=== PATIENT | female | born 1980 | race Asian ===

== ENCOUNTER 2017-06-20 02:19 | Inpatient (IN) | payer BC ==
[~2017-06-20] VITALS: Ht 152.4 cm; Wt 64.9 kg
[2017-06-20] MEDS ORDERED: LACTATED RINGERS 1,000 ML IV SCH (03:13)
[2017-06-20] MEDS ORDERED: CITRIC ACID/SODIUM CITRATE 30 ML UDC PO SCH (03:15)
[2017-06-20 03:30] VITALS: BP 105/64
[2017-06-20 03:50] LABS: BASOPHILS # (AUTO) 0.3 K/uL (0.00-0.22); BASOPHILS % (AUTO) 3.9 % (0.0-2.0); EOSINOPHILS # (AUTO) 0.1 K/uL (0-0.4); EOSINOPHILS % (AUTO) 0.6 % (0.0-4.0); HEMATOCRIT 42.1 % (36-48); HEMOGLOBIN 13.9 g/dL (12.0-16.0); LYMPHOCYTES # (AUTO) 2.4 K/uL (2.5-16.5); LYMPHOCYTES % (AUTO) 27.3 % (20.5-51.1); MEAN CORPUSCULAR HEMOGLOBIN 29 pg (27-31); MEAN CORPUSCULAR HGB CONC 33 g/dL (33-37); MEAN CORPUSCULAR VOLUME 89 fL (80-94); MONOCYTES # (AUTO) 0.6 K/uL (0.8-1.0); MONOCYTES % (AUTO) 7.2 % (1.7-9.3); NEUTROPHILS # (AUTO) 5.5 K/uL (1.8-7.7); PLATELET COUNT (AUTO) 246 K/uL (140-450); RED BLOOD CELL COUNT(AUTO) 4.74 MIL/uL (4.20-5.40); RED CELL DISTRIBUTION WIDTH 13.8 % (11.6-13.7); WHITE BLOOD COUNT (AUTO) 8.9 K/uL (4.8-10.8)
[2017-06-20 03:51] LABS: APPEARANCE,URINE CLEAR (CLEAR); BILIRUBIN,URINE NEGATIVE (NEGATIVE); BLOOD, URINE NEGATIVE (NEGATIVE); COLOR,URINE YELLOW (YELLOW); LEUKOCYTE ESTERASE ,URINE TRACE (NEGATIVE); NITRITE, URINE NEGATIVE (NEGATIVE); UGLUCOSE NEGATIVE (NEGATIVE)
[2017-06-20 04:16] LABS: ANION GAP 16.3 (8-16); CARBON DIOXIDE 22.6 mmol/L (21-32); CREATININE 0.8 mg/dL (0.6-1.3); POTASSIUM 3.9 mmol/L (3.5-5.1); TOTAL BILIRUBIN 0.3 mg/dL (0.0-1.0)
[2017-06-20 04:24] LABS: RBC,URINE 0-5 (RARE) /HPF (0-5); WBC,URINE 0-5 (RARE) /HPF (0-5)
[2017-06-20] MEDS ORDERED: PREN-380 PO (04:24)
[2017-06-20] MEDS ORDERED: [UNRECOGNIZED DRUG - OTHER] (04:24)
[2017-06-20] MEDS ORDERED: MORPHINE PRES FREE 10 MG/10 ML AMP IV ONE (06:52)
[2017-06-20] MEDS ORDERED: MIDAZOLAM 2 MG/2 ML VIAL ONE (06:52)
[2017-06-20] MEDS ORDERED: ceFAZolin 1,000 MG VIAL ONE (06:58)
[2017-06-20] MEDS ORDERED: SODIUM 10 ML VIAL ONE (06:58)
[2017-06-20] MEDS ORDERED: ONDANSETRON 4 MG/2 ML VIAL ONE (07:00)
[2017-06-20] MEDS ORDERED: BUPIVACAINE-MPF 0.75% 10 ML VIAL INJ ONE (07:00)
[2017-06-20] MEDS ORDERED: OXYTOCIN 10 UNITS/ML VIAL ONE (07:09)
[2017-06-20] MEDS ORDERED: TRIAMCINOLONE 40 MG/ML 5ML VIAL ONE (07:09)
[2017-06-20] MEDS ORDERED: OXYTOCIN 20 UNITS in LACTATED RINGERS 1,000 ML IV SCH ×2 (07:13→07:33)
[2017-06-20] MEDS ORDERED: MEASLES, MUMPS, AND RUBELLA 1 VIAL SQVAC PRN (07:15)
[2017-06-20] MEDS ORDERED: METHYLERGONOVINE 0.2 MG/ML AMP IM PRN (07:15)
[2017-06-20] MEDS ORDERED: HYDROcodone/APAP 5/325 MG 1 TAB TAB PO PRN (07:15)
[2017-06-20] MEDS ORDERED: oxyCODONE/APAP 5/325 MG 1 TAB TAB PO PRN (07:15)
[2017-06-20] MEDS ORDERED: SIMETHICONE 80 MG TAB.CHEW PO PRN (07:15)
[2017-06-20] MEDS ORDERED: TRIMETHOBENZAMIDE 200 MG/2 ML SYR IM PRN (07:15)
[2017-06-20] MEDS ORDERED: TEMAZEPAM 15 MG CAP PO PRN (07:15)
[2017-06-20] MEDS ORDERED: diphenhydrAMINE 50 MG/ML VIAL IVP PRN ×2 (07:35)
[2017-06-20] MEDS ORDERED: MEPERIDINE 25 MG/ML SYR IVP PRN (07:35)
[2017-06-20] MEDS ORDERED: ONDANSETRON 4 MG/2 ML VIAL IVP PRN ×2 (07:35)
[2017-06-20] MEDS ORDERED: NALOXONE 0.4 MG/ML VIAL IVP PRN ×3 (07:35)
[2017-06-20] MEDS ORDERED: NALBUPHINE 10 MG/ML AMP IVP PRN (07:35)
[2017-06-20] MEDS ORDERED: HYDROmorphone 1 MG/ML AMP IVP PRN (07:35)
--- NOTE | 2017-06-20 08:59 | NUR ---
PATIENT HAS BEEN SCREENED AND CATEGORIZED LOW NUTRITION RISK. PATIENT WILL BE SEEN WITHIN 7 DAYS OF ADMISSION. 06/26/[address]
[2017-06-20] MEDS ORDERED: KETOROLAC 30 MG/ML VIAL IM/IVP SCH (12:00)
[2017-06-20] MEDS ORDERED: DOCUSATE SOD/SENNA 50/8.6 MG 1 TAB PO SCH (21:00)
[2017-06-20] MEDS ORDERED: OXYTOCIN 20 UNITS/LR PREMIX 1,000 ML IV ONE (22:25)
[2017-06-21 06:50] LABS: BASOPHILS # (AUTO) 0.1 K/uL (0.00-0.22); BASOPHILS % (AUTO) 0.5 % (0.0-2.0); EOSINOPHILS % (AUTO) 0.2 % (0.0-4.0); HEMATOCRIT 37.1 % (36-48); HEMOGLOBIN 12.8 g/dL (12.0-16.0); LYMPHOCYTES # (AUTO) 1.4 K/uL (2.5-16.5); MEAN CORPUSCULAR HEMOGLOBIN 31 pg (27-31); MEAN CORPUSCULAR HGB CONC 35 g/dL (33-37); MEAN CORPUSCULAR VOLUME 90 fL (80-94); MONOCYTES # (AUTO) 0.4 K/uL (0.8-1.0); MONOCYTES % (AUTO) 2.6 % (1.7-9.3); NEUTROPHILS % (AUTO) 87.7 % (42.2-75.2); PLATELET COUNT (AUTO) 225 K/uL (140-450); RED BLOOD CELL COUNT(AUTO) 4.15 MIL/uL (4.20-5.40); RED CELL DISTRIBUTION WIDTH 13.4 % (11.6-13.7); WHITE BLOOD COUNT (AUTO) 15.9 K/uL (4.8-10.8)
[2017-06-21] MEDS ORDERED: INFLUENZA VIRUS VACCINE QUAD 0.5 ML SYR IMVAC SCH (10:55)
[2017-06-21] MEDS ORDERED: LEVOTHYROXINE 0.075 MG TAB PO SCH (12:00)
[2017-06-21] MEDS: IBUPROFEN 800 MG TAB PO PRN (20:06)
[2017-06-22] MEDS ORDERED: LEVOTHYROXINE 0.075 MG TAB PO SCH (06:30)
[2017-06-22] MEDS: IBUPROFEN 800 MG TAB PO PRN (08:00)
[2017-06-22] MEDS ORDERED: IBUP-1842 PO (10:46)
[2017-06-22] MEDS ORDERED: DOCU-300 PO (10:46)
== END 2017-06-22 16:42 | disposition home or self-care (01) | DRG 766 ==
LOC: MLD 02:35 → MFCC 07:00
PROVIDERS: ADMIT Obstetrics & Gynecology; ATTEND Obstetrics & Gynecology
PROC: 3E0234Z Introduction of Serum, Toxoid and Vaccine into Muscle, Percutaneous Approach (ICD-10-PCS; 2017-06-20)
PROC: 10D00Z1 Extraction of Products of Conception, Low, Open Approach (ICD-10-PCS; principal; 2017-06-20 07:00)
DX: O34.211 Maternal care for low transverse scar from previous cesarean delivery (principal); E03.9 Hypothyroidism, unspecified; O99.284 Endocrine, nutritional and metabolic diseases complicating childbirth; Z37.0 Single live birth; Z3A.38 38 weeks gestation of pregnancy; Z23 Encounter for immunization
CPT/HCPCS: 36415; 51702; 80053; 81001; 85025; 86592; 86886; 86900; 86901; 90658; 90707; 90715; J0690; J2250; J2270; J2405; J2590; J3301; J3490; J7060; J7120